=== PATIENT | male | born 1955 ===

== ENCOUNTER 2025-07-16 17:21 | Emergency (ER) | payer OTHER, SELFPAY ==
--- NOTE | 2025-07-16 | CRLHL7_ITS ---
For Patients: As a result of the Century Cures Act, medical imaging exams and procedure reports are released immediately into your electronic medical record. You may view this report before your referring provider. If you have questions, please contact your health care provider. INDICATION: Bone stuck in throat COMPARISON: None. TECHNIQUE: PA and lateral 2 view chest. FINDINGS: Lung volumes are good. No focal air trapping. No focal or diffuse opacities. No pulmonary edema. No pleural effusion. No pneumothorax. No pneumomediastinum. Normal cardiomediastinal silhouette. No foreign body seen. Normal airway silhouette. Atherosclerosis. Bones: Normal for age. IMPRESSION: No foreign body or foreign body complication seen. Please note that most of the neck is not included in the field of view. Dictated by Ana Davis MD @ 07/16/2025 6:04:49 PM (Electronically Signed)
[2025-07-16 17:30] VITALS: BP 123/76; PULSE 96; RESP 20; TEMP 36.2; O2SAT 98
--- NOTE | 2025-07-16 17:52 | ED.GENADULT ---
HPI - General Adult General Date Seen: 07/16/25 Chief complaint: Ear/Nose/Throat Problem Stated complaint: Spare rib bone stuck in throat Time Seen by Provider: 07/16/25 17:35 Source: patient Mode of arrival: ambulatory Limitations: no limitations History of Present Illness HPI narrative: Patient is a 70-year-old male presenting for concern of the esophageal foreign body. 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 He no longer has cancer. States the radiation was 8 years ago. States he has been told to be careful when swallowing as he is increased risk of obstruction. He was eating today when he said he was going too fast and swallowed a cartilage portion of a spare rib. Has been unable to swallow liquids since then. Has tried to drink water without success. States this has never happened before. Denies chest pain, shortness of breath, lightheadedness, dizziness. Related Data Allergies Allergy/AdvReac Type Severity Reaction Status Date / Time egg AdvReac Intermediate Diarrhea Verified 07/16/25 17:30 Milk Containing Products AdvReac Intermediate Diarrhea Verified 07/16/25 17:30 (Dairy) Review of Systems Narrative: Pertinent systems reviewed and were negative unless stated in HPI Exam Narrative: Exam Narrative: Const: Well-nourished, Well-developed, in mild distress, unable to tolerate liquids Eyes: PERRL, no conjunctival injection, and symmetrical lids HENT: Atraumatic external nose and ears. Moist mucous membranes. MSK:Extremities w/o deformity, Normal Active ROM Skin: Warm, Dry. No rashes or lesions. Neuro: Normal Muscle tone, No focal neurological deficits. Psych: Awake, Alert, & Oriented x3. Appropriate mood and affect. Const: Vital Signs, click to edit/add: Vital Signs - 24 hr 07/16/25 17:30 07/16/25 21:04 Temperature 97.2 F L Pulse Rate 82 Pulse Rate [Pulse Oximeter] 96 Respiratory Rate 20 Blood Pressure [Ri ght Upper Arm] 123/76 Pulse Oximetry 98 93 Oxygen Delivery Me thod Room Air Course Vital Signs Vital signs: Initial Vital Signs Temperature 97.2 F L 07/16/25 17:30 Temperature Source Temporal Artery Scan 07/16/25 17:30 Pulse Rate 96 07/16/25 17:30 Respiratory Rate 20 07/16/25 17:30 Blood Pressure 123/76 07/16/25 17:30 Blood Pressure Mean 91 07/16/25 17:30 Blood Pressure Position Sitting 07/16/25 17:30 Pulse Oximetry 98 07/16/25 17:30 Oxygen Delivery Method Room Air 07/16/25 17:30 Vital Signs Temperature 97.2 F L 07/16/25 17:30 Pulse Rate 96 07/16/25 17:30 Respiratory Rate 20 07/16/25 17:30 Blood Pressure 123/76 07/16/25 17:30 Pulse Oximetry 98 07/16/25 17:30 Oxygen Delivery Method Room Air 07/16/25 17:30 Temperature 97.2 F L 07/16/25 17:30 Pulse Rate 82 07/16/25 21:04 Respiratory Rate 20 07/16/25 17:30 Blood Pressure 123/76 07/16/25 17:30 Pulse Oximetry 93 07/16/25 21:04 Oxygen Delivery Method Room Air 07/16/25 17:30 Medications Administered Medications: Discontinued Medications Generic Name Dose Route Start Last Admin Trade Name Juan José PRN Reason Stop Dose Admin Glucagon 1 mg 07/16/25 18:52 07/16/25 19:03 Glucagon,Human Recombinant 1 Mg/Ml Vial IV 07/16/25 18:53 1 mg ONCE ONE Administration Medical Decision Making MDM Narrative Medical decision making narrative: Patient 70-year-old male presenting to emergency department for concern of esophageal foreign body. Will do x-ray to look for signs of radiopaque foreign body in to make sure he did not accidentally swallow a sharp bone. Chest x-ray and soft tissue neck x-ray reviewed by myself and the radiologist showed no acute concerning abnormalities. Will try glucagon to help try and pass the foreign body. Gone and carbonated drinks did not help pass foreign body. He had to spit up the carbonated drink. He is still unable to tolerate his oral secretions. Do this he will need an emergent endoscopy. I spoke to our on-call general surgeon, Dr. Riddle, and we are unable to do wait here tonight. Due to this he will be transferred to [facility]. He will go ED to ED transfer. I spoke to Dr. Mccauley. He accepted the patient for transfer. I spoke to the patient and he prefers to go by private vehicle. Diagnosis: Esophageal foreign body with complete obstruction Imaging Data Chest x-ray: Attestation: I have reviewed the pertinent imaging results. Radiologist's impression: No foreign body or foreign body complication seen. Please note that most of the neck is not included in the field of view. Dictated by Ana Davis MD @ 07/16/2025 6:04:49 PM Soft tissue neck x-ray: Attestation: I have reviewed the pertinent imaging results. Radiologist's impression: Essentially unremarkable soft tissue neck. No definite radiopaque foreign body seen. Dictated by Guero Jimenez MD @ 07/16/2025 6:51:40 PM Discharge Plan Discharge Clinical Impression: Esophageal foreign body Qualifiers: Encounter type: initial encounter Qualified Code(s): T18.108A - Unspecified foreign body in esophagus causing other injury, initial encounter Patient Disposition: Xfer Other Discharge Location: [facility] Condition: Unchanged Additional Instructions: Go straight to the [facility] Emergency Department and check an. Inform them were a transfer and need an endoscopy for a complete esophageal foreign body obstruction. Stand Alone Forms: [facility] Info Instructions
--- NOTE | 2025-07-16 18:14 | CRLHL7_ITS ---
For Patients: As a result of the Cures Act, medical imaging exams and procedure reports are released immediately into your electronic medical record. You may view this report before your referring provider. If you have questions, please contact your health care provider. INDICATION: Esophageal foreign body TECHNIQUE: Soft tissue neck 2 view. COMPARISON: None. FINDINGS: Epiglottis unremarkable. Prevertebral soft tissues unremarkable. Mild degenerative disc disease cervical spine with 2 millimeter retrolisthesis of C4 on 5. Calcification of the higher bone as well as atherosclerotic calcification. IMPRESSION: Essentially unremarkable soft tissue neck. No definite radiopaque foreign body seen. Dictated by Guero Jimenez MD @ 07/16/2025 6:51:40 PM (Electronically Signed)
[2025-07-16] MEDS: GLUCAGON,HUMAN RECOMBINANT 1 MG/ML VIAL IV (19:03)
[2025-07-16 21:04] VITALS: PULSE 82; O2SAT 93
[2025-07-16 21:15] VITALS: PULSE 79; O2SAT 95
[2025-07-16 21:30] VITALS: PULSE 86; O2SAT 96
[2025-07-16 21:36] VITALS: BP 155/90
== END 2025-07-16 21:45 | disposition other institution (70) ==
PROVIDERS: Emergency Provider Student in an Organized Health Care Education/Training Program
DX: T18.128A Food in esophagus causing other injury, initial encounter (principal)
CPT/HCPCS: 70360; 71046; 99285; J1610